=== PATIENT | male | born 1945 | race Caucasian/White ===

== ENCOUNTER 2017-01-27 07:33 | Inpatient (IN) | payer MEDICARE ==
[2017-01-27] VITALS (11 sets, daily range): BP systolic 143–198; BP diastolic 74–95; PULSE 57–108; RESP 16–18; TEMP 97–98.2; O2SAT 95–99
[2017-01-27] MEDS ORDERED: TRAV0.00 EACH EYE (07:49)
[2017-01-27] MEDS ORDERED: MORPHINE SULFATE 4 MG/ML INJ IV PUSH ONE (08:00)
[2017-01-27] MEDS ORDERED: ONDANSETRON HCL 4 MG/2 ML VIAL IVP ONE (08:00)
[2017-01-27] MEDS ORDERED: SODIUM CHLORID 0.9% 500 ML INJ 500 ML IV ONE (08:00)
[2017-01-27] MEDS ORDERED: PANTOPRAZOLE SODIUM 40 MG VIAL IVP ONE (08:00)
[2017-01-27] MEDS ORDERED: SODIUM CHLORIDE 0.9% FLUSH 10 ML FLUSH IV FLUSH PRN ×2 (08:00→11:00)
[2017-01-27 08:50] LABS: AUTOMATED NEUTROPHIL # 9.9 TH/MM3 (1.8-7.7); BASOPHIL % 0.2 % (0.0-2.0); EOSINOPHIL % 0.4 % (0.0-4.0); HEMATOCRIT 42.2 % (39.0-51.0); LYMPH % 9.6 % (9.0-44.0); LYMPHOCYTE # 1.1 TH/MM3 (1.0-4.8); MEAN CELL VOLUME 93.7 FL (80.0-100.0); MEAN CORPUSCULAR HEMOGLOBIN 31.5 PG (27.0-34.0); MEAN CORPUSCULAR HGB CONC 33.7 % (32.0-36.0); MONO % 6.2 % (0.0-8.0); NEUT % 83.6 % (16.0-70.0); RED BLOOD COUNT 4.51 MIL/MM3 (4.50-5.90); RED CELL DISTRIBUTION WIDTH 14.1 % (11.6-17.2); WHITE BLOOD COUNT 11.8 TH/MM3 (4.0-11.0)
[2017-01-27 08:58] LABS: PROTHROMBIN TIME - PATIENT 11.3 SEC (9.8-11.6)
--- NOTE | 2017-01-27 09:00 | PD ---
HPI Chief Complaint: GI Complaint Time Seen by Provider: 07:50 Travel History International Travel<30 days: No Contact w/Intl Traveler<30days: No Traveled to known affect area: No History of Present Illness HPI 71-year-old male came to the emergency room with history of abdominal pain, constipation and not passing gas for past 3 days. Patient points to his periumbilical area in a circular fashion saying the location of his pain. He says it's a dull ache and currently it is 2 out of 10. Patient says that he is a daily alcoholic but has not drank any alcohol in past 2 days because of the pain. He has been nauseous but no vomiting. He did not eat anything yesterday or today since he was afraid he'll make the pain worse. He has been drinking some fluid. Patient lives alone and came by himself. He is not extremely forthcoming with the history but upon asking does answer. Vital signs are otherwise stable. He does not appear to be in significant distress. He was tachycardic upon initial arrival but does not seem like he is having any withdrawal from alcohol. I noticed that his right I was red and upon asking he says he does not know how it happened but it started 2 days ago. Patient does have a primary care and the only medication he supposed to be is on Lipitor which she stopped 3 months ago since he did not feel like he needed it. [facility] Past Medical History Narrative Medical List of his past medical, surgical, social and family history as reviewed from the nursing note. Medical History: Denies Significant Hx Tetanus Vaccination: < 5 Years Influenza Vaccination: No Past Surgical History Appendectomy: Yes Social History Alcohol Use: Yes (" MUCH I CAN DAILY") Tobacco Use: No Substance Use: No Allergies-Medications (Allergen,Severity, Reaction): Coded Allergies: Amoxicillin (Verified Allergy, Mild, RASH, 01/27/17) Comments List of his allergies as reviewed from the nursing note. Reported Meds & Prescriptions Reported Meds & Active Scripts Active Reported Travatan Z Opth Drops (Travoprost) 0.004 % Soln 1 Drop EACH EYE HS Narrative Medication List of his home medications reviewed from the nursing note. Review of Systems Except as stated in HPI: all other systems reviewed are Neg Physical Exam Narrative GENERAL: Awake, alert, no obvious distress SKIN: Focused skin assessment warm/dry. HEAD: Atraumatic. Normocephalic. EYES: Pupils equal and round. No scleral icterus. No injection or drainage. Right eye has conjunctival hemorrhage but good extraocular eye motion and good vision grossly. ENT: No nasal bleeding or discharge. Mucous membranes pink and moist. NECK: Trachea midline. No JVD. CARDIOVASCULAR: Regular rate and rhythm. No murmur appreciated. RESPIRATORY: No accessory muscle use. Clear to auscultation. Breath sounds equal bilaterally. GASTROINTESTINAL: Abdomen soft, non-tender, nondistended. Hyperactive bowel sounds. Hepatic and splenic margins not palpable. MUSCULOSKELETAL: No obvious deformities. No clubbing. No cyanosis. No edema. NEUROLOGICAL: Awake and alert. No obvious cranial nerve deficits. Motor grossly within normal limits. Normal speech. PSYCHIATRIC: Appropriate mood and affect; insight and judgment normal. Data Data Last Documented VS Vital Signs Date Time Temp Pulse Resp B/P Pulse Ox O2 Delivery O2 Flow Rate FiO2 01/27/17 10:34 65 17 169/79 98 Room Air 01/27/17 07:35 97.8 Orders Complete Blood Count With Diff (01/27/17 07:57) Comprehensive Metabolic Panel (01/27/17 07:57) Lipase (01/27/17 07:57) Prothrombin Time / Inr (Pt) (01/27/17 07:57) Urinalysis - C+S If Indicated (01/27/17 07:57) Ct Abd/Pel W/O Iv Contrast (01/27/17 07:57) Iv Access Insert/Monitor (01/27/17 07:57) Ecg Monitoring (01/27/17 07:57) Oximetry (01/27/17 07:57) Morphine Inj (Morphine Inj) (01/27/17 08:00) Ondansetron Inj (Zofran Inj) (01/27/17 08:00) Pantoprazole Inj (Protonix Inj) (01/27/17 08:00) Sodium Chloride 0.9% Flush (Ns Flush) (01/27/17 08:00) Sodium Chlorid 0.9% 500 Ml Inj (Ns 500 M (01/27/17 08:00) Admit Order (Ed Use Only) (01/27/17 10:35) Labs Laboratory Tests Test 8/2/17 8/2/17 08:30 09:45 White Blood Count 11.8 TH/MM3 Red Blood Count 4.51 MIL/MM3 Hemoglobin 14.2 GM/DL Hematocrit 42.2 % Mean Corpuscular Volume 93.7 FL Mean Corpuscular Hemoglobin 31.5 PG Mean Corpuscular Hemoglobin 33.7 % Concent Red Cell Distribution Width 14.1 % Platelet Count 6 TH/MM3 Mean Platelet Volume 10.3 FL Neutrophils (%) (Auto) 83.6 % Lymphocytes (%) (Auto) 9.6 % Monocytes (%) (Auto) 6.2 % Eosinophils (%) (Auto) 0.4 % Basophils (%) (Auto) 0.2 % Neutrophils # (Auto) 9.9 TH/MM3 Lymphocytes # (Auto) 1.1 TH/MM3 Monocytes # (Auto) 0.7 TH/MM3 Eosinophils # (Auto) 0.0 TH/MM3 Basophils # (Auto) 0.0 TH/MM3 CBC Comment AUTO DIFF Differential Comment AUTO DIFF CONFIRMED Platelet Estimate RARE Platelet Morphology Comment NORMAL Red Cell Morphology Comment NORMAL Prothrombin Time 11.3 SEC Prothromb Time International 1.0 RATIO Ratio Sodium Level 135 MEQ/L Potassium Level 3.8 MEQ/L Chloride Level 102 MEQ/L Carbon Dioxide Level 22.9 MEQ/L Anion Gap 10 MEQ/L Blood Urea Nitrogen 12 MG/DL Creatinine 1.02 MG/DL Estimat Glomerular Filtration 72 ML/MIN Rate Random Glucose 108 MG/DL Calcium Level 9.0 MG/DL Total Bilirubin 1.0 MG/DL Aspartate Amino Transf 13 U/L (AST/SGOT) Alanine Aminotransferase 17 U/L (ALT/SGPT) Alkaline Phosphatase 87 U/L Total Protein 7.4 GM/DL Albumin 3.5 GM/DL Lipase 254 U/L Urine Color YELLOW Urine Turbidity CLEAR Urine pH 6.5 Urine Specific [place] 1.010 Urine Protein NEG mg/dL Urine Glucose (UA) NEG mg/dL Urine Ketones 10 mg/dL Urine Occult Blood TRACE Urine Nitrite NEG Urine Bilirubin NEG Urine Urobilinogen LESS THAN 2.0 MG/DL Urine Leukocyte Esterase NEG Urine RBC 3 /hpf Urine WBC 1 /hpf Urine Squamous Epithelial <1 /hpf Cells Urine Hyaline Casts 5 /lpf Urine Mucus FEW /lpf Microscopic Urinalysis Comment CULT NOT INDICATED MDM Medical Decision Making Medical Screen Exam Complete: Yes Emergency Medical Condition: Yes Medical Record Reviewed: Yes Differential Diagnosis Small bowel obstruction, abdominal pain NOS, acute pancreatitis Narrative Course 8:59 AM awaiting for the blood test results and the CAT scan to be done and resulted. Meanwhile patient is getting IV fluid bolus, medicated for pain and IV Protonix. 10:09 AM blood test results are back and patient's platelet results are critically low. Rest of the blood test results are within normal limits. CT abdomen and pelvis report was released by the radiologist and appears to be within normal limit. I would like to admit this patient and awaiting for the admitting team. Procedures EKG Prior to Arrival: No Diagnosis Primary Impression: Thrombocytopenia Additional Impression: Subconjunctival hemorrhage of right eye Admitting Information Admitting Physician Requests: Admit Scripts Prednisone 10 Mg Tab30 Mg PO BID #14 TAB Prov:Chhaya Santoro MD R1 01/29/17 Pantoprazole 40 Mg Tab40 Mg PO DAILY #30 TAB Prov:Chhaya Santoro MD R1 01/29/17 Claudia Noble MD Jan 27, 2017 09:00
[2017-01-27 09:07] LABS: ANION GAP 10 MEQ/L (5-15); AST (GOT) 13 U/L (15-37); BICARBONATE 22.9 MEQ/L (21.0-32.0); BLOOD UREA NITROGEN 12 MG/DL (7-18); CHLORIDE 102 MEQ/L (98-107); GLOMERULAR FILTRATION RATE 72 ML/MIN (>89); POTASSIUM 3.8 MEQ/L (3.5-5.1); SODIUM (NA) 135 MEQ/L (136-145)
[2017-01-27 09:08] LABS: ALT (GPT) 17 U/L (12-78); HEMO FLAGS AUTO DIFF
[2017-01-27 09:10] LABS: ALKALINE PHOSPHATASE 87 U/L (45-117)
[2017-01-27 09:12] LABS: PLATELET COUNT 6 TH/MM3 (150-450)
--- NOTE | 2017-01-27 10:04 | RADRPT ---
EXAM DATE/TIME: 01/27/2017 09:45 [facility] COMPARISON: No previous studies available for comparison. INDICATIONS : Epigastric pain, constipation, nausea and vomiting. ORAL CONTRAST: No oral contrast ingested. RADIATION DOSE: 9.96 CTDIvol (mGy) MEDICAL HISTORY : None SURGICAL HISTORY : Appendectomy. ENCOUNTER: Initial ACUITY: 3 days PAIN SCALE: 2/10 LOCATION: Bilateral upper quadrant TECHNIQUE: Volumetric scanning of the abdomen and pelvis was performed. Using automated exposure control and ad justment of the mA and/or kV according to patient size, radiation dose was kept as low as reasonably achievable to obtain optimal diagnostic quality images. DICOM format image data is available electro nically for review and comparison. FINDINGS: LOWER LUNGS: The visualized lower lungs are clear. LIVER: Homogeneous density without lesion. There is no dilation of the biliary tree. No calcified gallston es. SPLEEN: Normal size without lesion. PANCREAS: Within normal limits. KIDNEYS: Normal in size and shape. There is no mass, stone, or hydronephrosis. ADRENAL GLANDS: Within normal limits. VASCULAR: There is no aortic aneurysm. There is severe atherosclerotic disease. BOWEL/MESENTERY: The stomach, small bowel, and colon demonstrate no acute abnormality. There is no free intraperitone al air or fluid. Moderate size hiatal hernia is present. ABDOMINAL WALL: No acute abnormality. RETROPERITONEUM: There is no lymphadenopathy. BLADDER: No wall thickening or mass. REPRODUCTIVE: Within normal limits. INGUINAL: There is no lymphadenopathy or hernia. MUSCULOSKELETAL: There are degenerative changes of the lumbar spine. CONCLUSION: 1. No acute finding is identified to explain the clinical symptoms. 2. Nonacute findings include moderate size hiatal hernia and severe atherosclerotic disease. Reynaldo Lincoln MD on January 27, 2017 at 9:58 Board Certified Radiologist. This report was verified electronically.
[2017-01-27 10:16] LABS: BLOOD, URINE TRACE (NEG); COMMENT (UR) CULT NOT INDICATED; CULTURE IF INDICATED CULT NOT INDICATED; GLUCOSE,URINE NEG (NEG); HYALINE CAST, URINE 5 /lpf (RARE); KETONE, URINE 10 mg/dL (NEG); MUCUS URINE FEW /lpf (OCC); NITRITE,URINE NEG (NEG); PH, URINE 6.5 (5.0-8.5); SQUAMOUS EPITHELIAL CELL URINE <1 /hpf (0-5); URINE COLOR YELLOW (YELLW/STRAW)
[2017-01-27 10:42] LABS: PLATELET ESTIMATE SMEAR RARE (NORMAL)
--- NOTE | 2017-01-27 10:42 | HHI.HP ---
HPI Service Family Medicine Primary Care Physician Candido Almanzar MD Admission Diagnosis thrombocytopenia, chronic alcoholism Diagnoses: International Travel<30 Days: No Contact w/Intl Traveler<30days: No Known Affected Area: No History of Present Illness 71 yr old M w/ heavy alcohol history and 45-pack year smoking history, presented with abdominal pain. Accompanied by daughter. Abdominal pain started 2 days ago. Describes pain as constant, dull, located in the mid epigastric area and non radiating. Had 2-3 episodes of non bloody vomiting yesterday. Complains of constipation for the past couple of days as well as not passing gas. Daughter is a nurse and she became concern for bowel obstruction. In addition, pt reports R eye conjunctival hemorrhage, noticed it 3 days ago. Hx of easily bruising for the last 4 months. No family hx of bleeding disorders. No hx of liver disease, recent travel, recent infections. Only medication he takes is Travaprost for glaucoma. CBC in ED resulted in significant thrombocytopenia Plt count <6000. Reports hx of lower leg edema, left leg greater than the right. Family friend that is an internal medicine doctor prescribed patient lasix, but pt reports not taking it. Denies calf pain and no pitting edema in legs present at this time. Pt drinks 3-4 cups of whiskey per day. Last drink was 2 days ago. Quit smoking 2 years ago. Denies illicit drug use. Denies weight loss, fevers, night sweats, chills, CP, and SOB. (Chhaya Santoro MD R1) Review of Systems Other Per HPI (Chhaya Santoro MD R1) Past Family Social History Past Medical History Hyperlipidemia Past Surgical History R eye surgery for cataracts Basal cell carcinoma Dental implants (Chhaya Santoro MD R1) Allergies: Coded Allergies: Amoxicillin (Verified Allergy, Mild, RASH, 01/27/17) Family History Mom at 92 from stroke Dad at 86 from pancreatic cancer Social History Lives alone in [place]. Former smoker. 45 pack year smoking history, quit 2 years ago. Drinks 3-4 cups of whiskey per day. Denies illicit drug use. (Chhaya Santoro MD R1) Physical Exam Vital Signs Vital Signs Date Time Temp Pulse Resp B/P Pulse Ox O2 Delivery O2 Flow Rate FiO2 01/27/17 10:34 65 17 169/79 98 Room Air 01/27/17 08:00 99 Room Air 01/27/17 07:50 65 17 198/95 99 Room Air 01/27/17 07:35 97.8 108 16 143/84 97 Physical Exam GENERAL: This is a well-nourished, well-developed patient, in no apparent distress. SKIN: ecchymoses on bilateral arms, small bruises on abdomen EYES: Pupils equal round and reactive. Extraocular motions intact. No scleral icterus. No injection or drainage. CARDIOVASCULAR: Regular rate and rhythm without murmurs, gallops, or rubs. RESPIRATORY: Clear to auscultation. Breath sounds equal bilaterally. No wheezes , rales, or rhonchi. GASTROINTESTINAL: Abdomen soft, non-tender, nondistended. No hepato-splenomegaly , or palpable masses. No guarding. MUSCULOSKELETAL: Extremities without clubbing, cyanosis, or edema. Laboratory Laboratory Tests Test 01/27/17 01/27/17 08:30 09:45 White Blood Count 11.8 Red Blood Count 4.51 Hemoglobin 14.2 Hematocrit 42.2 Mean Corpuscular Volume 93.7 Mean Corpuscular Hemoglobin 31.5 Mean Corpuscular Hemoglobin 33.7 Concent Red Cell Distribution Width 14.1 Platelet Count 6 Mean Platelet Volume 10.3 Neutrophils (%) (Auto) 83.6 Lymphocytes (%) (Auto) 9.6 Monocytes (%) (Auto) 6.2 Eosinophils (%) (Auto) 0.4 Basophils (%) (Auto) 0.2 Neutrophils # (Auto) 9.9 Lymphocytes # (Auto) 1.1 Monocytes # (Auto) 0.7 Eosinophils # (Auto) 0.0 Basophils # (Auto) 0.0 CBC Comment AUTO DIFF Prothrombin Time 11.3 Prothromb Time International 1.0 Ratio Sodium Level 135 Potassium Level 3.8 Chloride Level 102 Carbon Dioxide Level 22.9 Anion Gap 10 Blood Urea Nitrogen 12 Creatinine 1.02 Estimat Glomerular Filtration 72 Rate Random Glucose 108 Calcium Level 9.0 Total Bilirubin 1.0 Aspartate Amino Transf 13 (AST/SGOT) Alanine Aminotransferase 17 (ALT/SGPT) Alkaline Phosphatase 87 Total Protein 7.4 Albumin 3.5 Lipase 254 Urine Color YELLOW Urine Turbidity CLEAR Urine pH 6.5 Urine Specific [place] 1.010 Urine Protein NEG Urine Glucose (UA) NEG Urine Ketones 10 Urine Occult Blood TRACE Urine Nitrite NEG Urine Bilirubin NEG Urine Urobilinogen LESS THAN 2.0 Urine Leukocyte Esterase NEG Urine RBC 3 Urine WBC 1 Urine Squamous Epithelial <1 Cells Urine Hyaline Casts 5 Urine Mucus FEW Microscopic Urinalysis Comment CULT NOT INDICATED (Chhaya Santoro MD R1) Result Diagram: 01/27/1782901/27/1730 Assessment and Plan Assessment and Plan 71 yr old M with significant alcohol history admitted for thrombocytopenia Code Status Full code Discussed Condition With Discussed patient with Dr. Bell. Pt seen and examined with Dr. Von Morfin ( Chhaya Santoro MD R1) Attending Attestation THIS CASE WAS DISCUSSED WITH THE RESIDENT PHYSICIAN. I HAVE REVIEWED THE RECORD AND AGREE WITH THE ABOVE NOTE AND PLAN OF CARE WAS DISCUSSED. I HAVE AUTHORIZED THE ORDER FOR PLACEMENT IN OUT-PATIENT OBSERVATION STATUS. (Ady Bell MD) Problem List: (1) Thrombocytopenia Status: Acute Plan: Plt count <6000 on CBC. Pt reports a hx of bruising easily for the past 4 months. No active bleeding. Spoke with Dr. 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 -Solumedrol 80 q12 -IVIG- Privigen 1,000 mg/kg for 2 consecutive days Hem Onc consulted Liver enzymes within normal limits INR < 1.0 UA negative Peripheral smear ordered HIV pending Hep panel pending haptoglobin pending LDH pending Doppler US b/l ordered (2) Abdominal pain Status: Acute Plan: Pt complains of dull, diffuse epigastric pain. Reports that he has been constipated for the past couple of days. Last BM was a couple of days ago. Not passing gas. WBC 11.8 NPO- bowel rest Fluids 100mls/ hr NS CT abdomen- no acute process Liver enzymes within normal limits (3) Constipation Status: Acute Plan: Pt reports being constipated for the last couple of days. Will start bowel regimen with colace (4) Chronic alcoholism Status: Acute Plan: [facility] protocol Folic Acid Multivitamin (5) Nutrition, metabolism, and development symptoms Status: Acute Plan: Fluids: NS 100mls/hr Diet: NPO Nursing orders: vitals q4h, I & Os (Chhaya Santoro MD R1) Physician Certification 2 Midnight Certification Type: Admission for Inpatient Services Order for Inpatient Services The services are ordered in accordance with Medicare regulations or non- Medicare payer requirements, as applicable. In the case of services not specified as inpatient-only, they are appropriately provided as inpatient services in accordance with the 2-midnight benchmark. Estimated LOS (days): 2 2 days is the estimated time the patient will need to remain in the hospital, assuming treatment plan goals are met and no additional complications. Post-Hospital Plan: Home (Chhaya Santoro MD R1) Chhaya Santoro MD R1 Jan 27, 2017 10:42 Ady Bell MD Jan 27, 2017 16:52
[2017-01-27 10:43] LABS: PLATELET MORPHOLOGY NORMAL (NORMAL); SCAN/DIFF AUTO DIFF CONFIRMED
[2017-01-27] MEDS: SODIUM CHLORIDE 0.9% FLUSH 10 ML FLUSH IV FLUSH SCH ×2 (11:07→21:19)
[2017-01-27] MEDS ORDERED: FLUMAZENIL 0.5 MG/5 ML VIAL IV PUSH PRN (12:15)
[2017-01-27] MEDS ORDERED: BISACODYL 10 MG SUPP RECTAL PRN (12:15)
[2017-01-27] MEDS ORDERED: LORazepam 1 MG TAB PO PRN (12:15)
[2017-01-27] MEDS ORDERED: LACTULOSE SYRUP 20 GM/30 ML CUP PO PRN (12:15)
[2017-01-27] MEDS ORDERED: MAGNESIUM HYDROXIDE SUSP 30 ML CUP PO PRN (12:15)
[2017-01-27] MEDS ORDERED: SENNOSIDES 8.6 MG TAB PO PRN (12:15)
[2017-01-27] MEDS ORDERED: LORazepam 2 MG/ML VIAL IV PUSH PRN ×4 (12:15)
[2017-01-27] MEDS ORDERED: LORazepam 2 MG TAB PO PRN (12:15)
--- NOTE | 2017-01-27 12:47 | RADRPT ---
EXAM DATE/TIME: 01/27/2017 12:20 [facility] COMPARISON: No previous studies available for comparison. INDICATIONS : Cough. MEDICAL HISTORY : None. SURGICAL HISTORY : Appendectomy. ENCOUNTER: Initial ACUITY: 1 week PAIN SCORE: 0/10 LOCATION: Bilateral chest FINDINGS: Minimal parenchymal changes are seen in the right lung anteriorly overlying the heart seen only on th e lateral. The heart and pulmonary vascularity are normal. The portion of the bony skeleton visualiz ed is unremarkable. Osseous structures are intact. CONCLUSION: Abnormal chest as described above. Darrin Munoz MD FACR on January 27, 2017 at 12:44 Board Certified Radiologist. This report was verified electronically.
--- NOTE | 2017-01-27 13:30 | RADRPT ---
EXAM DATE/TIME: 01/27/2017 12:39 [facility] COMPARISON: No previous studies available for comparison. INDICATIONS : Bilateral leg swelling. MEDICAL HISTORY : Hyperlipidemia. Basal cell carcinoma. SURGICAL HISTORY : Appendectomy. Right cataract. Basal cell carcinoma removed. ENCOUNTER: Initial ACUITY: 1 day PAIN SCORE: 2/10 LOCATION: Bilateral leg. TECHNIQUE: Venous ultrasound of the left and right leg was performed from the inguinal ligament to the proximal calf. Real-time, color Doppler and spectral tracing, compression and augmentation techniques were us ed. FINDINGS: RIGHT LEG: There is normal compressibility of the deep venous system from the inguinal region to the proximal ca lf. No echogenic clot is seen in the lumen of the common femoral, femoral, popliteal, and posterior tibial veins. There is a normal response of the venous system to proximal and distal augmentation an d respiration. LEFT LEG: There is normal compressibility of the deep venous system from the inguinal region to the proximal ca lf. No echogenic clot is seen in the lumen of the common femoral, femoral, popliteal, and posterior tibial veins. There is a normal response of the venous system to proximal and distal augmentation an d respiration. CONCLUSION: Negative for deep venous thrombosis. Darrin Munoz MD FACR on January 27, 2017 at 13:24 Board Certified Radiologist. This report was verified electronically.
[2017-01-27] MEDS: THIAMINE HCL 100 MG TAB PO SCH (14:24)
[2017-01-27] MEDS: MULTIVITAMIN TAB PO SCH (14:24)
[2017-01-27] MEDS: FOLIC ACID 1 MG TAB PO SCH (14:25)
[2017-01-27] MEDS: DOCUSATE SODIUM 50 MG/SENNA 8.6 MG TAB PO SCH ×2 (14:25→21:17)
[2017-01-27] MEDS: SODIUM CHLOR 0.9% 1000 ML INJ 1,000 ML IV SCH ×2 (14:28→23:15)
[2017-01-27] MEDS ORDERED: ACETAMINOPHEN 325 MG TAB PO PRN (15:00)
--- NOTE | 2017-01-27 16:51 | HHI.HP ---
[facility] Service Family Medicine Primary Care Physician Candido Almanzar MD Admission Diagnosis thrombocytopenia, chronic alcoholism Diagnoses: (1) Thrombocytopenia (2) Abdominal pain (3) Constipation (4) Chronic alcoholism (5) Nutrition, metabolism, and development symptoms International Travel<30 Days: No Contact w/Intl Traveler<30days: No Known Affected Area: No History of Present Illness 71-year-old male presenting to the emergency department with vague abdominal pain and found to have platelets of 6. He is complaining of abdominal pain that he says started 2 days ago. Describes this as a constant ache that is dull in nature and is in the epigastric region. This is associated with 2-3 episodes of nonbloody emesis yesterday. He also endorses constipation associated with this. He denies fevers or chills, denies chest pain or palpitations, denies shortness of breath. CT scan in the emergency department shows a hiatal hernia, otherwise no findings as to what could be causing this pain. During his workup in the emergency department, a CBC was read and he was found to have platelets of 6. Further evaluation shows that he has had easy bruising over the last 3-4 months. He denies any recent bleeding, denies bleeding from the gums, denies melena/hematochezia, denies nosebleeds. He did notice right is subconjunctival hemorrhage 3 days ago that occurred spontaneously. The only medication that he takes is travoprost drops for glaucoma. He does endorse a heavy alcohol history with 3-4 large whiskey drinks per night. He does endorse bilateral lower extremity edema, right greater than left over the last 2 months as well. Review of Systems Constitutional: COMPLAINS OF: Fatigue, DENIES: Fever, Weight gain, Chills, Dizziness Eyes: DENIES: Blurred vision, Double Vision Respiratory: DENIES: Cough, Wheezing, Hemoptysis, Sputum production, Shortness of breath Cardiovascular: COMPLAINS OF: Lower Extremity Edema, DENIES: Chest pain, Palpitations, Syncope, Dyspnea on Exertion Gastrointestinal: COMPLAINS OF: Abdominal pain, Constipation, Nausea, Vomiting , DENIES: Black stools, Bloody stools, Diarrhea, Difficulty Swallowing Musculoskeletal: DENIES: Joint pain Hematologic/lymphatic: COMPLAINS OF: Bruising, DENIES: Lymphadenopathy Past Family Social History Past Medical History Hyperlipidemia Past Surgical History R eye surgery for cataracts Basal cell carcinoma Dental implants Allergies: Coded Allergies: Amoxicillin (Verified Allergy, Mild, RASH, 01/27/17) Family History Mom at 92 from stroke Dad at 86 from pancreatic cancer Social History Lives alone in [place]. Former smoker. 45 pack year smoking history, quit 2 years ago. Drinks 3-4 cups of whiskey per day. Denies illicit drug use. Physical Exam Vital Signs Vital Signs Date Time Temp Pulse Resp B/P Pulse Ox O2 Delivery O2 Flow Rate FiO2 01/27/17 15:27 97.9 64 18 173/87 97 01/27/17 13:14 98.2 57 18 171/80 95 01/27/17 12:35 62 18 160/89 98 Room Air 01/27/17 10:34 65 17 169/79 98 Room Air 01/27/17 08:00 99 Room Air 01/27/17 07:50 65 17 198/95 99 Room Air 01/27/17 07:35 97.8 108 16 143/84 97 Physical Exam GENERAL: This is a well-nourished, well-developed patient, in no apparent distress. SKIN: ecchymoses on bilateral arms, small bruises on abdomen. Bilateral lower extremity venous stasis changes with darkening of his lower extremities. EYES: Right eye with large subconjunctival hemorrhage. Pupils are equal round and reactive to light CARDIOVASCULAR: Regular rate and rhythm without murmurs, gallops, or rubs. RESPIRATORY: Clear to auscultation. Breath sounds equal bilaterally. No wheezes , rales, or rhonchi. GASTROINTESTINAL: Abdomen soft, non-tender, nondistended. No hepato-splenomegaly , or palpable masses. No guarding. MUSCULOSKELETAL: Bilateral lower extremities with trace edema. Bilateral lower extremities with darkening/discoloration consistent with peripheral vascular disease Laboratory Laboratory Tests Test 01/27/17 01/27/17 01/27/17 01/27/17 08:30 09:45 11:24 13:04 White Blood Count 11.8 Red Blood Count 4.51 Hemoglobin 14.2 Hematocrit 42.2 Mean Corpuscular Volume 93.7 Mean Corpuscular Hemoglobin 31.5 Mean Corpuscular Hemoglobin 33.7 Concent Red Cell Distribution Width 14.1 Platelet Count 6 Mean Platelet Volume 10.3 Neutrophils (%) (Auto) 83.6 Lymphocytes (%) (Auto) 9.6 Monocytes (%) (Auto) 6.2 Eosinophils (%) (Auto) 0.4 Basophils (%) (Auto) 0.2 Neutrophils # (Auto) 9.9 Lymphocytes # (Auto) 1.1 Monocytes # (Auto) 0.7 Eosinophils # (Auto) 0.0 Basophils # (Auto) 0.0 CBC Comment AUTO DIFF Differential Comment AUTO DIFF CONFIRMED Platelet Estimate RARE Platelet Morphology Comment NORMAL Red Cell Morphology Comment NORMAL Prothrombin Time 11.3 Prothromb Time International 1.0 Ratio Sodium Level 135 Potassium Level 3.8 Chloride Level 102 Carbon Dioxide Level 22.9 Anion Gap 10 Blood Urea Nitrogen 12 Creatinine 1.02 Estimat Glomerular Filtration 72 Rate Random Glucose 108 Calcium Level 9.0 Total Bilirubin 1.0 Aspartate Amino Transf 13 (AST/SGOT) Alanine Aminotransferase 17 (ALT/SGPT) Alkaline Phosphatase 87 Total Protein 7.4 Albumin 3.5 Lipase 254 Urine Color YELLOW Urine Turbidity CLEAR Urine pH 6.5 Urine Specific [place] 1.010 Urine Protein NEG Urine Glucose (UA) NEG Urine Ketones 10 Urine Occult Blood TRACE Urine Nitrite NEG Urine Bilirubin NEG Urine Urobilinogen LESS THAN 2.0 Urine Leukocyte Esterase NEG Urine RBC 3 Urine WBC 1 Urine Squamous Epithelial <1 Cells Urine Hyaline Casts 5 Urine Mucus FEW Microscopic Urinalysis Comment CULT NOT INDICATED Blood Smear Pathologist Review Haptoglobin 198 Lactate Dehydrogenase 173 Vitamin B12 Level 720 Folate 11.7 Result Diagram: 01/27/17 0830 01/27/17 0830 Imaging Last 72 hours Impressions Abdomen/Pelvis CT 01/27/17 0757 Signed Impressions: Service Date/Time: Friday, January 27, 2017 09:45 - CONCLUSION: 1. No acute finding is identified to explain the clinical symptoms. 2. Nonacute findings include moderate size hiatal hernia and severe atherosclerotic disease. Reynaldo Lincoln MD Lower Extremity Ultrasound 01/27/17 0000 Signed Impressions: Service Date/Time: Friday, January 27, 2017 12:39 - CONCLUSION: Negative for deep venous thrombosis. Darrin Munoz MD FACR Chest X-Ray 01/27/17 0000 Signed Impressions: Service Date/Time: Friday, January 27, 2017 12:20 - CONCLUSION: Abnormal chest as described above. Darrin Munoz MD FACR Assessment and Plan Assessment and Plan 71 yr old M with significant alcohol history admitted for thrombocytopenia Problem List: (1) Thrombocytopenia Status: Acute Plan: Plt count <6000 on CBC. Pt reports a hx of bruising easily for the past 4 months. No active bleeding. Spoke with Dr. 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 -Solumedrol 80 q12 -IVIG- Privigen 1,000 mg/kg for 2 consecutive days Hem Onc consulted Liver enzymes within normal limits INR < 1.0 UA negative Peripheral smear ordered HIV pending Hep panel pending haptoglobin pending LDH pending Doppler US b/l ordered (2) Abdominal pain Status: Acute Plan: Pt complains of dull, diffuse epigastric pain. Reports that he has been constipated for the past couple of days. Last BM was a couple of days ago. Not passing gas. WBC 11.8 NPO- bowel rest Fluids 100mls/ hr NS CT abdomen- no acute process Liver enzymes within normal limits (3) Constipation Status: Acute Plan: Pt reports being constipated for the last couple of days. Will start bowel regimen with colace (4) Chronic alcoholism Status: Acute Plan: [facility] protocol Folic Acid Multivitamin (5) Nutrition, metabolism, and development symptoms Status: Acute Plan: Fluids: NS 100mls/hr Diet: NPO Nursing orders: vitals q4h, I & Os Ady Bell MD Jan 27, 2017 16:51
[2017-01-27] MEDS: methylPREDNISolone SOD SUCC 40 MG/1 ML VIAL IV PUSH SCH ×2 (17:22→21:19)
[2017-01-27] MEDS ORDERED: IMMUNE GLOBULIN INJ 80 GM in SYRINGE/BAG 1 EA IV ONE (18:00)
[2017-01-27] MEDS ORDERED: ACETAMINOPHEN 325 MG TAB PO ONE (19:17)
[2017-01-27] MEDS ORDERED: diphenhydrAMINE HCL 25 MG CAP PO ONE (19:17)
[2017-01-27] MEDS ORDERED: diphenhydrAMINE HCL 50 MG/ML VIAL IV PUSH PRN (19:30)
[2017-01-27] MEDS ORDERED: EPINEPHrine HCL (1:1000) 1 MG/ML VIAL IM PRN (19:30)
[2017-01-27] MEDS: DEXTROSE 5% IN WATE 500 ML INJ 500 ML IV SCH (20:00)
[2017-01-27] MEDS ORDERED: ENALAPRILAT 1.25 MG/ML VIAL IV PRN (20:45)
[2017-01-27] MEDS: LATANOPROST 0.005% OPHT SOLN 2.5 ML BTL EACH EYE SCH (21:36)
[2017-01-28] VITALS (10 sets, daily range): BP systolic 119–158; BP diastolic 56–81; PULSE 52–69; RESP 15–20; TEMP 96.2–97.9; O2SAT 93–97
--- NOTE | 2017-01-28 05:44 | MB ---
cc: TAD HO DATE OF CONSULTATION 01/27/2017 REASON FOR CONSULTATION 6000, platelet count. PATIENT PROFILE The patient is a 71-year-old white male. He is . He was once. He has five children. He was born in [place]. 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 He stopped smoking 2 years ago and had previously smoked a pack of cigarettes per day for 45 years for total of 45 pack-years. Alcohol consists of two to three drinks each day; each drink is approximately 1-1/2 ounces of whiskey. HISTORY OF PRESENT ILLNESS The patient is a 71-year male who noted increasing bruising over several weeks. During the past few days he had abdominal pain and constipation. It was the pain that drove him to go to the emergency room. There was no recent escalation of alcohol intake, in that the alcohol intake has been fairly consistent and unchanging. He has not had any alcohol in two to three days. There has been no recent infection. The only medicine he takes is Travatan eye drops. When he arrived at the emergency room he had a CBC and platelet count - hemoglobin 14, hematocrit 42, white count 11,000, platelet count 6000, neutrophils are 83%. Review of the peripheral smear revealed rare platelets. The report by the pathologist reads platelets are severely decreased in number. Those present demonstrate normal size and granularity. Schistocytes are not present to suggest a microangiopathic hemolytic process. Haptoglobin is 198. 'Lytes, BUN, creatinine and liver function tests are unremarkable except for a slightly low sodium at 135. LDH is 173. B12 720 and folic acid as 11.7. PAST SURGICAL HISTORY 1. Removal of skin cancers which were not melanoma. 2. Dental implants. 3. Cataract surgery. 4. Appendectomy. PAST MEDICAL HISTORY No medical problems. MEDICATIONS PRIOR TO ADMISSION Travatan eye drops. ALLERGIES AMOXICILLIN caused a rash. FAMILY HISTORY Noncontributory. REVIEW OF SYSTEMS HEENT: Vision decreased right eye which is longstanding. Several days ago he had a hemorrhage into the conjunctiva of the right eye. Hearing is fine. CARDIORESPIRATORY: No chest pain, palpitations, no shortness of breath or cough. GI: Abdominal discomfort, constipation. Last colonoscopy was 6 months ago and was normal by history. : No dysuria or frequency. MUSCULOSKELETAL: No bone pain. NEUROLOGIC: No weakness. SKIN: Increased bruising particular over the abdominal wall. PHYSICAL EXAMINATION GENERAL: Physical exam reveals a pleasant well-appearing male. VITAL SIGNS: Blood pressure is 170/80, respiratory rate 18, pulse 60, afebrile, respiratory rate 20. HEAD: Normocephalic. Sclerae - there is hemorrhage in the sclera of the right eye Oropharynx - a few small petechiae in the back of the throat. LYMPHATICS: There is no lymphadenopathy. HEART: Regular rhythm. LUNGS: Clear. ABDOMEN: Soft. No hepatosplenomegaly. EXTREMITIES: Trace edema with slight stasis changes involving the lower extremities around the ankle. NEUROLOGIC: No focal weakness. SKIN: There are ecchymoses over the abdominal wall and a few petechiae involving the lower extremities. ASSESSMENT The patient has a picture consistent with ITP. I do not believe there is a primary bone marrow disorder given the normal hemoglobin, white count and differential. There is no evidence of a microangiopathic thrombocytopenia. PT and INR are normal, he is well and there is no evidence to suggest DIC. He is not taking any medication which would cause thrombocytopenia. 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 PLAN 1. IV steroids. 2. Given the severity of the thrombocytopenia, I am going to treat him with IVIG 1 gram per kilogram daily for two days. He will have a CBC and platelet count daily. I am hoping within 3 or 5 days we will see the platelets rise above 30,000 and then he can be discharged with a tapering dose of prednisone. 3. I cannot explain the abdominal pain at the moment. He does have a normal lipase, the abdominal exam is benign and he had a colonoscopy approximately 6 months ago. MD BABAR Maki/SUN /9:26 PM /5:26 AM GAYLE
[2017-01-28 08:41] LABS: AUTOMATED NEUTROPHIL # 9.4 TH/MM3 (1.8-7.7); HEMATOCRIT 40.6 % (39.0-51.0); LYMPHOCYTE # 0.6 TH/MM3 (1.0-4.8); MEAN CELL VOLUME 94.6 FL (80.0-100.0); MEAN CORPUSCULAR HGB CONC 33.9 % (32.0-36.0); MONO % 1.5 % (0.0-8.0); NEUT % 92.5 % (16.0-70.0); RED CELL DISTRIBUTION WIDTH 13.9 % (11.6-17.2); WHITE BLOOD COUNT 10.2 TH/MM3 (4.0-11.0)
[2017-01-28 08:48] LABS: HEMO FLAGS AUTO DIFF
[2017-01-28 08:51] LABS: PLATELET COUNT 12 TH/MM3 (150-450)
[2017-01-28] MEDS: FOLIC ACID 1 MG TAB PO SCH (09:48)
[2017-01-28] MEDS: methylPREDNISolone SOD SUCC 40 MG/1 ML VIAL IV PUSH SCH ×2 (09:48→20:37)
[2017-01-28] MEDS: MULTIVITAMIN TAB PO SCH (09:48)
[2017-01-28] MEDS: THIAMINE HCL 100 MG TAB PO SCH (09:48)
[2017-01-28] MEDS: PANTOPRAZOLE SOD 40 MG DELAYED RELEASE TAB PO SCH (09:48)
[2017-01-28] MEDS: SODIUM CHLOR 0.9% 1000 ML INJ 1,000 ML IV SCH (09:50)
[2017-01-28] MEDS: DOCUSATE SODIUM 50 MG/SENNA 8.6 MG TAB PO SCH ×2 (09:55→20:37)
--- NOTE | 2017-01-28 10:29 | PD.ONC.PN ---
Subjective Subjective Remarks Afebrile overnight Patient denies any bleeding Denies headache Patient to receive dose 2 out of 3 IVIG today Objective Data Date Time Temp Pulse Resp B/P Pulse Ox O2 Delivery O2 Flow Rate FiO2 01/28/17 09:15 96.2 57 20 138/73 97 01/28/17 06:08 96.4 52 17 158/81 96 01/28/17 04:00 97.0 54 17 134/70 96 01/28/17 03:00 97.5 62 15 145/70 94 01/28/17 02:05 97.0 54 18 149/79 94 01/28/17 00:45 96.3 60 16 154/78 95 01/28/17 00:20 97.1 59 17 157/76 93 01/27/17 23:45 97.0 61 18 157/77 95 01/27/17 23:19 98.2 61 18 143/74 95 01/27/17 20:41 20 01/27/17 20:09 61 18 175/86 01/27/17 20:07 97.7 62 17 186/90 95 01/27/17 15:27 97.9 64 18 173/87 97 01/27/17 13:14 98.2 57 18 171/80 95 01/27/17 12:35 62 18 160/89 98 Room Air 01/27/17 10:34 65 17 169/79 98 Room Air Result Diagram: 01/28/17 0641 01/27/17 0830 Laboratory Results Laboratory Tests Test 01/27/17 01/27/17 01/27/17 01/28/17 11:24 13:04 18:34 06:41 Blood Smear Pathologist Review Haptoglobin 198 MG/DL Lactate Dehydrogenase 173 U/L Vitamin B12 Level 720 PG/ML Folate 11.7 NG/ML Hepatitis A IgM Antibody NEGATIVE Hepatitis B Surface Antigen NEGATIVE Hepatitis B Core IgM Antibody NEGATIVE Hepatitis C Antibody NEGATIVE HIV (1&2) Antibody NEGATIVE D-Dimer Quantitative (PE/DVT) 0.76 MG/L FEU White Blood Count 10.2 TH/MM3 Red Blood Count 4.30 MIL/MM3 Hemoglobin 13.8 GM/DL Hematocrit 40.6 % Mean Corpuscular Volume 94.6 FL Mean Corpuscular Hemoglobin 32.0 PG Mean Corpuscular Hemoglobin 33.9 % Concent Red Cell Distribution Width 13.9 % Platelet Count 12 TH/MM3 Mean Platelet Volume 10.2 FL Neutrophils (%) (Auto) 92.5 % Lymphocytes (%) (Auto) 6.0 % Monocytes (%) (Auto) 1.5 % Eosinophils (%) (Auto) 0.0 % Basophils (%) (Auto) 0.0 % Neutrophils # (Auto) 9.4 TH/MM3 Lymphocytes # (Auto) 0.6 TH/MM3 Monocytes # (Auto) 0.2 TH/MM3 Eosinophils # (Auto) 0.0 TH/MM3 Basophils # (Auto) 0.0 TH/MM3 CBC Comment AUTO DIFF Administered Medications Medications (Trade) Dose Ordered Sig/Shania Route PRN Reason Start Time Stop Time Status Last Admin Dose Admin Sodium Chloride (NS Flush) 2 ml BID IV FLUSH 01/27/17 11:00 01/27/17 21:19 Folic Acid (Folate) 1 mg DAILY PO 01/27/17 13:00 01/28/17 09:48 Multivitamins (Theragran) 1 tab DAILY PO 01/27/17 13:00 01/28/17 09:48 Thiamine HCl (Vitamin B1) 100 mg DAILY PO 01/27/17 13:00 01/28/17 09:48 Senna/Docusate Sodium (Cami-Colace) 1 tab BID PO 01/27/17 13:00 01/28/17 09:55 Latanoprost 1 drop 1 drop HS EACH EYE 01/27/17 21:00 01/27/17 21:36 Sodium Chloride (NS 1000 ml Inj) 1,000 ml @ 100 mls/hr Q10H IV 01/27/17 13:15 01/28/17 09:50 Acetaminophen (Tylenol) 650 mg Q4H PRN PO PAIN 01/27/17 15:00 01/27/17 17:19 Methylprednisolone Sodium Succinate 80 mg 80 mg Q12HR IV PUSH 01/27/17 16:14 01/28/17 09:48 Dextrose (D5W 500 ml Inj) 500 ml @ 30 mls/hr [id number] IV 01/27/17 20:00 01/27/17 20:00 Pantoprazole Sodium (Protonix) 40 mg DAILY PO 01/28/17 09:00 01/28/17 09:48 Objective Remarks GENERAL: Older male resting in bed in no distress SKIN: Warm and dry. Healing ecchymoses to abdomen HEAD: Normocephalic. EYES: Conjunctival hemorrhage to right eye NECK: No JVD or lymphadenopathy. CARDIOVASCULAR: S1/S2. Normal rhythm. RESPIRATORY: Breath sounds equal bilaterally. No accessory muscle use. GASTROINTESTINAL: Abdomen soft, non-tender, nondistended. EXTREMITIES: Minimal petechiae to bilateral lower extremities MUSCULOSKELETAL: Adequate muscle tone. NEUROLOGICAL: No obvious focal deficit. Awake, alert, and oriented x3. Assessment/Plan Problem List: (1) Thrombocytopenia Status: Acute Assessment 71 -year-old male admitted with thrombocytopenia Plan 1. Patient to receive IVIG today 2. We will continue steroids until platelets greater than 30,000. 3. Once platelets greater than 30,000 he can be discharged on tapering dose steroids. 4. Follow up in clinic Attending Statement The exam, history, and the medical decision-making described in the above note were completed with the assistance of the mid-level provider. I reviewed and agree with the findings presented. I attest that I had a [id number] encounter with the patient on the same day, and personally performed and documented my assessment and findings in the medical record. platelets higher today. It usually takes about 3 days from starting IV IG to have a response and hopefully we will have this. Once the platelets are greater then 30,000 can send home on po prednisone. continue current tx. Rosalina Gardiner Jan 28, 2017 10:29 Yandel Salcido MD Jan 28, 2017 18:01
--- NOTE | 2017-01-28 10:38 | HHI.FPPN ---
Subjective Remarks No acute events overnight. Pt doing well this AM. Afebrile. Vitals are within normal limits. Reports that abdominal pain resolved. Denies CP, SOB, edema in legs, and N/V. (Chhaya Santoro MD R1) Objective Vitals Vital Signs Date Time Temp Pulse Resp B/P Pulse Ox O2 Delivery O2 Flow Rate FiO2 01/28/17 09:15 96.2 57 20 138/73 97 01/28/17 06:08 96.4 52 17 158/81 96 01/28/17 04:00 97.0 54 17 134/70 96 01/28/17 03:00 97.5 62 15 145/70 94 01/28/17 02:05 97.0 54 18 149/79 94 01/28/17 00:45 96.3 60 16 154/78 95 01/28/17 00:20 97.1 59 17 157/76 93 01/27/17 23:45 97.0 61 18 157/77 95 01/27/17 23:19 98.2 61 18 143/74 95 01/27/17 20:41 20 01/27/17 20:09 61 18 175/86 01/27/17 20:07 97.7 62 17 186/90 95 01/27/17 15:27 97.9 64 18 173/87 97 01/27/17 13:14 98.2 57 18 171/80 95 01/27/17 12:35 62 18 160/89 98 Room Air I/O 01/27/17 01/27/17 01/27/17 01/28/17 01/28/17 01/28/17 07:00 15:00 23:00 07:00 15:00 23:00 Output Total 1350 ml Balance -1350 ml Output Urine Total 1350 ml (Chhaya Santoro MD R1) Result Diagram: 01/28/17 0641 01/27/17 0830 Imaging Last Impressions Abdomen/Pelvis CT 01/27/17 0757 Signed Impressions: Service Date/Time: Friday, January 27, 2017 09:45 - CONCLUSION: 1. No acute finding is identified to explain the clinical symptoms. 2. Nonacute findings include moderate size hiatal hernia and severe atherosclerotic disease. Reynaldo Lincoln MD Lower Extremity Ultrasound 01/27/17 0000 Signed Impressions: Service Date/Time: Friday, January 27, 2017 12:39 - CONCLUSION: Negative for deep venous thrombosis. Darrin Munoz MD FACR Chest X-Ray 01/27/17 0000 Signed Impressions: Service Date/Time: Friday, January 27, 2017 12:20 - CONCLUSION: Abnormal chest as described above. Darrin Munoz MD FACR Objective Remarks ENERAL: This is a well-nourished, well-developed patient, in no apparent distress. SKIN: ecchymoses on bilateral arms, small bruises on abdomen. Bilateral lower extremity venous stasis changes with darkening of his lower extremities. EYES: Right eye with large subconjunctival hemorrhage. Pupils are equal round and reactive to light CARDIOVASCULAR: Regular rate and rhythm without murmurs, gallops, or rubs. RESPIRATORY: Clear to auscultation. Breath sounds equal bilaterally. No wheezes , rales, or rhonchi. GASTROINTESTINAL: Abdomen soft, non-tender, nondistended. No hepato-splenomegaly , or palpable masses. No guarding. MUSCULOSKELETAL: Bilateral lower extremities with trace edema. Bilateral lower extremities with darkening/discoloration consistent with peripheral vascular disease (Chhaya Santoro MD R1) A/P Assessment and Plan 71 yr old M with significant alcohol history admitted for thrombocytopenia Discharge Planning Discharge home pending, continue treatment with IVIG and monitoring plt count ( Chhaya Santoro MD R1) Attending Attestation Pt. examined and case discussed with resident physicians I have read the above note and agree with the assessment/plan as discussed with me I was involved in all medical decision making for this patient Ady Bell MD (Ady Bell MD) Problem List: (1) Thrombocytopenia Status: Acute Plan: Plt count <6000 upon admission. Pt reports a hx of bruising easily for the past 4 months. No active bleeding. Spoke with Dr. 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 -Solumedrol 80 q12 -IVIG- Privigen 1,000 mg/kg for 2 consecutive days, will receive 2 dose today -Plt count improving, 12,000 today -Once platelets greater than 30,000 he can be discharged on tapering dose steroids. Hem Onc consulted, appreciated recs Liver enzymes within normal limits INR < 1.0 UA negative Peripheral smear revealed decreased plt number, otherwise normal HIV negative Hep panel negative haptoglobin wnl LDH wnl Doppler US b/l negative for DVTs (2) Abdominal pain Status: Resolved Plan: Pt complains of dull, diffuse epigastric pain that has resolved. WBC improving, 10.[address] abdomen- no acute process Liver enzymes within normal limits (3) Constipation Status: Acute Plan: Pt reports being constipated for the last couple of days. bowel regimen with colace (4) Chronic alcoholism Status: Acute Plan: [facility] protocol Folic Acid Multivitamin (5) Nutrition, metabolism, and development symptoms Status: Acute Plan: Fluids: none Diet: regular diet Nursing orders: vitals q4h, I & Os (Chhaya Santoro MD R1) Chhaya Santoro MD R1 Jan 28, 2017 10:38 Ady Bell MD Jan 28, 2017 16:37
[2017-01-28 10:43] LABS: PLATELET ESTIMATE SMEAR RARE (NORMAL); PLATELET MORPHOLOGY NORMAL (NORMAL); SCAN/DIFF AUTO DIFF CONFIRMED
[2017-01-28 12:28] LABS: BICARBONATE 22.4 MEQ/L (21.0-32.0); POTASSIUM 3.7 MEQ/L (3.5-5.1)
[2017-01-28] MEDS: DEXTROSE 5% IN WATE 500 ML INJ 500 ML IV SCH (12:40)
[2017-01-28] MEDS ORDERED: IMMUNE GLOBULIN INJ 80 GM in SYRINGE/BAG 1 EA IV ONE (18:00)
[2017-01-28] MEDS: SODIUM CHLORIDE 0.9% FLUSH 10 ML FLUSH IV FLUSH SCH ×2 (18:33→20:44)
[2017-01-28] MEDS ORDERED: EPINEPHRINE HCL (1:1000) 1 MG/ML AMP Reaction Med OTHER PRN (20:15)
[2017-01-28] MEDS ORDERED: DIPHENHYDRAMINE HCL 25 MG CAP Pre-med PO ONE (20:15)
[2017-01-28] MEDS ORDERED: NS 500 ML Pre-hydration IV ONE (20:15)
[2017-01-28] MEDS ORDERED: DIPHENHYDRAMINE HCL 50 MG/ML VIAL Reaction Med IV PUSH PRN (20:15)
[2017-01-28] MEDS ORDERED: ACETAMINOPHEN 325 MG TAB Pre-med PO ONE (20:15)
[2017-01-28] MEDS: LATANOPROST 0.005% OPHT SOLN 2.5 ML BTL EACH EYE SCH (20:42)
[2017-01-29] VITALS (12 sets, daily range): BP systolic 107–143; BP diastolic 60–72; PULSE 54–68; RESP 16–18; TEMP 96.2–97; O2SAT 94–98
[2017-01-29] MEDS: SODIUM CHLORIDE 0.9% FLUSH 10 ML FLUSH IV FLUSH SCH (08:04)
[2017-01-29] MEDS: methylPREDNISolone SOD SUCC 40 MG/1 ML VIAL IV PUSH SCH (08:05)
[2017-01-29] MEDS: MULTIVITAMIN TAB PO SCH (08:06)
[2017-01-29] MEDS: FOLIC ACID 1 MG TAB PO SCH (08:06)
[2017-01-29] MEDS: THIAMINE HCL 100 MG TAB PO SCH (08:06)
[2017-01-29] MEDS: DOCUSATE SODIUM 50 MG/SENNA 8.6 MG TAB PO SCH (08:06)
[2017-01-29] MEDS: PANTOPRAZOLE SOD 40 MG DELAYED RELEASE TAB PO SCH (08:06)
[2017-01-29 09:12] LABS: AUTOMATED NEUTROPHIL # 13.7 TH/MM3 (1.8-7.7); BASOPHIL % 0.1 % (0.0-2.0); HEMATOCRIT 35.5 % (39.0-51.0); LYMPHOCYTE # 0.8 TH/MM3 (1.0-4.8); MEAN CELL VOLUME 94.7 FL (80.0-100.0); MEAN CORPUSCULAR HEMOGLOBIN 32.1 PG (27.0-34.0); MEAN CORPUSCULAR HGB CONC 33.9 % (32.0-36.0); MONO % 4.7 % (0.0-8.0); NEUT % 90.2 % (16.0-70.0); PLATELET COUNT 68 TH/MM3 (150-450); RED BLOOD COUNT 3.75 MIL/MM3 (4.50-5.90); RED CELL DISTRIBUTION WIDTH 14.1 % (11.6-17.2); WHITE BLOOD COUNT 15.2 TH/MM3 (4.0-11.0)
[2017-01-29 09:22] LABS: HEMO FLAGS AUTO DIFF
[2017-01-29 09:33] LABS: BICARBONATE 18.9 MEQ/L (21.0-32.0); POTASSIUM 4.1 MEQ/L (3.5-5.1)
[2017-01-29 10:06] LABS: PLATELET ESTIMATE SMEAR LOW (NORMAL); PLATELET MORPHOLOGY NORMAL (NORMAL); SCAN/DIFF AUTO DIFF CONFIRMED
--- NOTE | 2017-01-29 10:39 | PD.ONC.PN ---
Subjective Subjective Remarks Afebrile overnight. Patient resting in bed. Hoping to take a shower. Wanting to go home. No further bleeding. Objective Data Date Time Temp Pulse Resp B/P Pulse Ox O2 Delivery O2 Flow Rate FiO2 01/29/17 08:00 96.2 61 18 137/72 98 01/29/17 07:00 96.2 61 17 123/64 97 01/29/17 06:00 96.7 62 17 143/70 97 01/29/17 05:00 97.0 55 17 134/66 96 01/29/17 04:00 96.6 54 18 118/63 97 01/29/17 03:00 96.2 60 18 117/68 97 01/29/17 02:00 96.6 58 18 107/60 96 01/29/17 00:46 97.0 58 18 123/63 94 01/29/17 00:30 96.7 63 18 126/69 95 01/29/17 00:15 96.4 64 18 118/68 96 01/29/17 00:00 96.2 68 18 117/63 95 01/28/17 20:00 97.9 69 17 131/66 95 01/28/17 15:30 96.4 69 20 119/56 95 01/28/17 11:30 96.2 69 20 119/65 95 01/29/17 01/29/17 01/29/17 06:59 14:59 22:59 Output Total 500 ml 480 ml Balance -500 ml -480 ml Result Diagram: 01/29/1714 01/29/1714 Laboratory Results Laboratory Tests Test 01/28/17 01/29/17 11:00 08:14 Sodium Level 137 MEQ/L 137 MEQ/L Potassium Level 3.7 MEQ/L 4.1 MEQ/L Chloride Level 107 MEQ/L 111 MEQ/L Carbon Dioxide Level 22.4 MEQ/L 18.9 MEQ/L Anion Gap 8 MEQ/L 7 MEQ/L Blood Urea Nitrogen 17 MG/DL 21 MG/DL Creatinine 0.89 MG/DL 0.99 MG/DL Estimat Glomerular Filtration 84 ML/MIN 74 ML/MIN Rate Random Glucose 118 MG/DL 106 MG/DL Calcium Level 8.3 MG/DL 7.9 MG/DL White Blood Count 15.2 TH/MM3 Red Blood Count 3.75 MIL/MM3 Hemoglobin 12.0 GM/DL Hematocrit 35.5 % Mean Corpuscular Volume 94.7 FL Mean Corpuscular Hemoglobin 32.1 PG Mean Corpuscular Hemoglobin 33.9 % Concent Red Cell Distribution Width 14.1 % Platelet Count 68 TH/MM3 Mean Platelet Volume 9.6 FL Neutrophils (%) (Auto) 90.2 % Lymphocytes (%) (Auto) 5.0 % Monocytes (%) (Auto) 4.7 % Eosinophils (%) (Auto) 0.0 % Basophils (%) (Auto) 0.1 % Neutrophils # (Auto) 13.7 TH/MM3 Lymphocytes # (Auto) 0.8 TH/MM3 Monocytes # (Auto) 0.7 TH/MM3 Eosinophils # (Auto) 0.0 TH/MM3 Basophils # (Auto) 0.0 TH/MM3 CBC Comment AUTO DIFF Differential Comment AUTO DIFF CONFIRMED Platelet Estimate LOW Platelet Morphology Comment NORMAL Red Cell Morphology Comment NORMAL Administered Medications Medications (Trade) Dose Ordered Sig/Shania Route PRN Reason Start Time Stop Time Status Last Admin Dose Admin Sodium Chloride (NS Flush) 2 ml BID IV FLUSH 01/27/17 11:00 01/29/17 08:04 Folic Acid (Folate) 1 mg DAILY PO 01/27/17 13:00 01/29/17 08:06 Multivitamins (Theragran) 1 tab DAILY PO 01/27/17 13:00 01/29/17 08:06 Thiamine HCl (Vitamin B1) 100 mg DAILY PO 01/27/17 13:00 01/29/17 08:06 Senna/Docusate Sodium (Cami-Colace) 1 tab BID PO 01/27/17 13:00 01/29/17 08:06 Latanoprost (Xalatan 0.005% Opth Soln) 1 drop HS EACH EYE 01/27/17 21:00 01/28/17 20:42 Acetaminophen 650 mg 650 mg Q4H PRN PO PAIN 01/27/17 15:00 01/27/17 17:19 Dextrose (D5W 500 ml Inj) 500 ml @ 30 mls/hr [id number] IV 01/27/17 20:00 01/28/17 12:40 Pantoprazole Sodium (Protonix) 40 mg DAILY PO 01/28/17 09:00 01/29/17 08:06 Objective Remarks GENERAL: Elderly male upright in bed in nad. SKIN: Warm and dry. HEAD: Normocephalic. EYES: No injection or drainage. NECK: Supple, trachea midline. CARDIOVASCULAR: Regular rate and rhythm RESPIRATORY: Breath sounds equal bilaterally. No accessory muscle use. GASTROINTESTINAL: Abdomen soft, non-tender, nondistended. EXTREMITIES: No cyanosis NEUROLOGICAL: awake and alert, normal speech. Assessment/Plan Assessment 71 -year-old male admitted with thrombocytopenia Plan 1. platelets 68K. clear for discharge 2. would discharge on Prednisone 30mg PO BID + Protonix 3. fs faxed to new patient referrals. Must have follow up by 02.05.17. would continue on same dose of Prednisone until that time Attending Statement The exam, history, and the medical decision-making described in the above note were completed with the assistance of the mid-level provider. I reviewed and agree with the findings presented. I attest that I had a [id number] encounter with the patient on the same day, and personally performed and documented my assessment and findings in the medical record. doing well without further bleeding and platelets have risen rapidly. can go home on prednisone 60 mg a day and I will taper as outpatient. diagnosis remains ITP. Above reviewed with patient. Rossi Townsend Jan 29, 2017 10:38 Yandel Salcido MD Jan 29, 2017 13:08
--- NOTE | 2017-01-29 10:53 | HHI.FPPN ---
Subjective Remarks No acute events overnight. Patient doing well this AM. Denies active bleeding, CP, SOB, N/V, and abdominal pain. (Chhaya Santoro MD R1) Objective Vitals Vital Signs Date Time Temp Pulse Resp B/P Pulse Ox O2 Delivery O2 Flow Rate FiO2 01/29/17 09:00 96.7 59 16 140/70 96 01/29/17 08:00 96.2 61 18 137/72 98 01/29/17 07:00 96.2 61 17 123/64 97 01/29/17 06:00 96.7 62 17 143/70 97 01/29/17 05:00 97.0 55 17 134/66 96 01/29/17 04:00 96.6 54 18 118/63 97 01/29/17 03:00 96.2 60 18 117/68 97 01/29/17 02:00 96.6 58 18 107/60 96 01/29/17 00:46 97.0 58 18 123/63 94 01/29/17 00:30 96.7 63 18 126/69 95 01/29/17 00:15 96.4 64 18 118/68 96 01/29/17 00:00 96.2 68 18 117/63 95 01/28/17 20:00 97.9 69 17 131/66 95 01/28/17 15:30 96.4 69 20 119/56 95 01/28/17 11:30 96.2 69 20 119/65 95 I/O 01/28/17 01/28/17 01/28/17 01/29/17 01/29/17 01/29/17 07:00 15:00 23:00 07:00 15:00 23:00 Intake Total 360 ml 300 ml Output Total 1350 ml 400 ml 380 ml 500 ml 480 ml Balance -1350 ml -40 ml -80 ml -500 ml -480 ml Intake Oral 360 ml IV Total 300 ml Output Urine Total 1350 ml 400 ml 380 ml 500 ml 480 ml # Bowel Movements 0 (Chhaya Santoro MD R1) Result Diagram: 01/29/1714 01/29/17813 Imaging Last Impressions Abdomen/Pelvis CT 01/27/17 0757 Signed Impressions: Service Date/Time: Friday, January 27, 2017 09:45 - CONCLUSION: 1. No acute finding is identified to explain the clinical symptoms. 2. Nonacute findings include moderate size hiatal hernia and severe atherosclerotic disease. Reynaldo Lincoln MD Lower Extremity Ultrasound 01/27/17 0000 Signed Impressions: Service Date/Time: Friday, January 27, 2017 12:39 - CONCLUSION: Negative for deep venous thrombosis. Darrin Munoz MD FACR Chest X-Ray 01/27/17 Signed Impressions: Service Date/Time: Friday, January 27, 2017 12:20 - CONCLUSION: Abnormal chest as described above. Darrin Munoz MD FACR Objective Remarks GENERAL: This is a well-nourished, well-developed patient, in no apparent distress. SKIN: ecchymoses on bilateral arms, small bruises on abdomen. Bilateral lower extremity venous stasis changes with darkening of his lower extremities. EYES: Right eye with large subconjunctival hemorrhage. Pupils are equal round and reactive to light CARDIOVASCULAR: Regular rate and rhythm without murmurs, gallops, or rubs. RESPIRATORY: Clear to auscultation. Breath sounds equal bilaterally. No wheezes , rales, or rhonchi. GASTROINTESTINAL: Abdomen soft, non-tender, nondistended. No hepato-splenomegaly , or palpable masses. No guarding. MUSCULOSKELETAL: Bilateral lower extremities with trace edema. Bilateral lower extremities with darkening/discoloration consistent with peripheral vascular disease (Chhaya Santoro MD R1) A/P Assessment and Plan 71 yr old M with significant alcohol history admitted for thrombocytopenia Discharge Planning Plt count improving, discharge home with steroids and PPI, follow-up with oncology in 1 week (Chhaya Santoro MD R1) Attending Attestation Pt. examined and case discussed with resident physicians I have read the above note and agree with the assessment/plan as discussed with me I was involved in all medical decision making for this patient Ady Bell MD (Ady Bell MD) Problem List: (1) Thrombocytopenia Status: Acute Plan: Plt count today is 68,000. Determined stable by Hem/Onc team. Will be discharge with Prednisone 30 mg BID for 7 days and Protonix 40mg daily. Follow up with Oncology in 1 week and they will taper dose. Plt count <6000 upon admission. Pt reports a hx of bruising easily for the past 4 months. No active bleeding. Spoke with Dr. Salcido on the phone, most likely ITP s/p Solumedrol 80 q12 and IVIG- Privigen 1,000 mg/kg for 2 consecutive days Hem Onc consulted, appreciated recs Liver enzymes within normal limits INR < 1.0 UA negative Peripheral smear revealed decreased plt number, otherwise normal HIV negative Hep panel negative haptoglobin wnl LDH wnl Doppler US b/l negative for DVTs (2) Abdominal pain Status: Resolved Plan: Pt complains of dull, diffuse epigastric pain that has resolved. WBC 15.2, most likely due to patient taking steroids for ITP CT abdomen- no acute process Liver enzymes within normal limits (3) Constipation Status: Resolved Plan: Pt reports being constipated for the last couple of days. bowel regimen with colace (4) Chronic alcoholism Status: Acute Plan: [facility] protocol Folic Acid Multivitamin (5) Nutrition, metabolism, and development symptoms Status: Acute Plan: Fluids: none Diet: regular diet Nursing orders: vitals q4h, I & Os (Chhaya Santoro MD R1) Chhaya Santoro MD R1 Jan 29, 2017 10:53 Ady Bell MD Jan 29, 2017 14:17
[2017-01-29] MEDS ORDERED: PRED10 PO (10:57)
[2017-01-29] MEDS ORDERED: PANT40TA3 PO (10:57)
--- NOTE | 2017-01-29 10:57 | HHI.DCPOC ---
Discharge Care Plan Diagnosis: (1) Thrombocytopenia (2) Chronic alcoholism Goals to Promote Your Health * To prevent worsening of your condition and complications * To maintain your health at the optimal level Directions to Meet Your Goals Take your medications as prescribed Follow your dietary instruction Follow activity as directed Keep your appointments as scheduled Take your immunizations and boosters as scheduled If your symptoms worsen call your PCP, if no PCP go to Urgent Care Center or Emergency Room Smoking is Dangerous to Your Health. Avoid second hand smoke Call the 24-hour hour crisis hotline for domestic abuse at Chhaya Santoro MD R1 Jan 29, 2017 10:57
--- NOTE | 2017-01-29 10:57 | HHI.DS ---
Discharge Summary Admission Date Jan 27, 2017 at 10:38 Discharge Date: Jan 29, 2017 Admitting Diagnosis thrombocytopenia, chronic alcoholism (1) Thrombocytopenia Diagnosis: Principal Plan: Plt count <6000 upon admission. Pt reports a hx of bruising easily for the past 4 months. No active bleeding. Spoke with Dr. 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 -Solumedrol 80 q12 -IVIG- Privigen 1,000 mg/kg for 2 consecutive days, will receive 2 dose today -Plt count improving, 12,000 today -Once platelets greater than 30,000 he can be discharged on tapering dose steroids. Hem Onc consulted, appreciated recs Liver enzymes within normal limits INR < 1.0 UA negative Peripheral smear revealed decreased plt number, otherwise normal HIV negative Hep panel negative haptoglobin wnl LDH wnl Doppler US b/l negative for DVTs (2) Abdominal pain Diagnosis: Secondary Plan: Pt complains of dull, diffuse epigastric pain that has resolved. WBC improving, 10.[address] abdomen- no acute process Liver enzymes within normal limits (3) Constipation Diagnosis: Secondary Plan: Pt reports being constipated for the last couple of days. bowel regimen with colace (4) Chronic alcoholism Diagnosis: Secondary Plan: [facility] protocol Folic Acid Multivitamin (5) Nutrition, metabolism, and development symptoms Diagnosis: Secondary Plan: Fluids: none Diet: regular diet Nursing orders: vitals q4h, I & Os Consultants Hematology/oncology Procedures None Brief History 71-year-old male presenting to the emergency department with vague abdominal pain and found to have platelets of 6. He is complaining of abdominal pain that he says started 2 days ago. Describes this as a constant ache that is dull in nature and is in the epigastric region. This is associated with 2-3 episodes of nonbloody emesis yesterday. He also endorses constipation associated with this. He denies fevers or chills, denies chest pain or palpitations, denies shortness of breath. CT scan in the emergency department shows a hiatal hernia, otherwise no findings as to what could be causing this pain. During his workup in the emergency department, a CBC was read and he was found to have platelets of 6. Further evaluation shows that he has had easy bruising over the last 3-4 months. He denies any recent bleeding, denies bleeding from the gums, denies melena/hematochezia, denies nosebleeds. He did notice right is subconjunctival hemorrhage 3 days ago that occurred spontaneously. The only medication that he takes is travoprost drops for glaucoma. He does endorse a heavy alcohol history with 3-4 large whiskey drinks per night. He does endorse bilateral lower extremity edema, right greater than left over the last 2 months as well. CBC/BMP: 01/29/17 0814 01/29/17 0814 Significant Findings Laboratory Tests Test 01/27/17 01/27/17 01/27/17 01/28/17 08:30 09:45 18:34 06:41 White Blood Count 11.8 TH/MM3 (4.0-11.0) Platelet Count 6 TH/MM3 12 TH/MM3 (150-450) (150-450) Neutrophils (%) (Auto) 83.6 % 92.5 % (16.0-70.0) (16.0-70.0) Neutrophils # (Auto) 9.9 TH/MM3 9.4 TH/MM3 (1.8-7.7) (1.8-7.7) Platelet Estimate RARE (NORMAL) RARE (NORMAL) Sodium Level 135 MEQ/L (136-145) Estimat Glomerular Filtration 72 ML/MIN (>89) Rate Random Glucose 108 MG/DL (74-106) Aspartate Amino Transf 13 U/L (15-37) (AST/SGOT) Urine Ketones 10 mg/dL (NEG) Urine Occult Blood TRACE (NEG) Urine Mucus FEW /lpf (OCC) D-Dimer Quantitative (PE/DVT) 0.76 MG/L FEU (0.00-0.50) Red Blood Count 4.30 MIL/MM3 (4.50-5.90) Lymphocytes (%) (Auto) 6.0 % (9.0-44.0) Lymphocytes # (Auto) 0.6 TH/MM3 (1.0-4.8) Test 01/28/17 01/29/17 11:00 08:14 Estimat Glomerular Filtration 84 ML/MIN (>89) 74 ML/MIN (>89) Rate Random Glucose 118 MG/DL (74-106) Calcium Level 8.3 MG/DL 7.9 MG/DL (8.5-10.1) (8.5-10.1) White Blood Count 15.2 TH/MM3 (4.0-11.0) Red Blood Count 3.75 MIL/MM3 (4.50-5.90) Hemoglobin 12.0 GM/DL (13.0-17.0) Hematocrit 35.5 % (39.0-51.0) Platelet Count 68 TH/MM3 (150-450) Neutrophils (%) (Auto) 90.2 % (16.0-70.0) Lymphocytes (%) (Auto) 5.0 % (9.0-44.0) Neutrophils # (Auto) 13.7 TH/MM3 (1.8-7.7) Lymphocytes # (Auto) 0.8 TH/MM3 (1.0-4.8) Platelet Estimate LOW (NORMAL) Chloride Level 111 MEQ/L (98-107) Carbon Dioxide Level 18.9 MEQ/L (21.0-32.0) Blood Urea Nitrogen 21 MG/DL (7-18) PE at Discharge GENERAL: This is a well-nourished, well-developed patient, in no apparent distress. SKIN: ecchymoses on bilateral arms, small bruises on abdomen. Bilateral lower extremity venous stasis changes with darkening of his lower extremities. EYES: Right eye with large subconjunctival hemorrhage. Pupils are equal round and reactive to light CARDIOVASCULAR: Regular rate and rhythm without murmurs, gallops, or rubs. RESPIRATORY: Clear to auscultation. Breath sounds equal bilaterally. No wheezes , rales, or rhonchi. GASTROINTESTINAL: Abdomen soft, non-tender, nondistended. No hepato-splenomegaly , or palpable masses. No guarding. MUSCULOSKELETAL: Bilateral lower extremities with trace edema. Bilateral lower extremities with darkening/discoloration consistent with peripheral vascular disease Hospital Course Pt admitted on 01/27/17 for abdominal pain and Immune thrombocytopenia pupura. Plt count < [address] was negative for acute process. Hematology/Oncology consulted. Patient received Solumedrol and IVIG x2. Platelet count trended up to 12,000 on 01/28 and 68,000 01/29. Patient's abdominal pain resolved during his stay. Hematology/oncology determined that patient was stable for discharge on 7day course of Prednisone and Protonix. Patient recommended to follow up with hematology/oncology in 1 week for steroid tapering. Also recommended follow up with PCP in 1 week. Pt Condition on Discharge: Stable Discharge Disposition: Discharge Home Discharge Instructions DIET: Follow Instructions for: As Tolerated, No Restrictions Speech Therapy-Diet Recommends: Regular Activities you can perform: Regular-No Restrictions Follow up Referrals: Oncology - 1 Week with Yandel Salcido MD PCP Follow-up - 1 Week New Medications: Pantoprazole (Pantoprazole) 40 Mg Tab 40 MG PO DAILY GI protection #30 TAB Prednisone (Prednisone) 10 Mg Tab 30 MG PO BID #14 TAB Continued Medications: Travoprost Opth Drops (Travatan Z Opth Drops) 0.004 % Soln 1 DROP EACH EYE HS Glaucoma #1 Ref 0 BOTTLE Chhaya Santoro MD R1 Jan 29, 2017 10:57
[2017-01-29] MEDS ORDERED: predniSONE 10 MG TAB PO SCH (21:00)
== END 2017-01-29 13:00 | disposition home or self-care (01) | DRG 813 ==
LOC: NEPE 07:33 → NEDA 10:38 → OBSVTOIN 10:38 → INTOOBSV 10:38 → NEPFCDU 13:08 → INTOOBSV 18:28 → OBSVTOIN 18:28 → HOCA 23:42
PROVIDERS: ADMIT Family Medicine; ATTEND Family Medicine
DX: D69.3 Immune thrombocytopenic purpura (principal); E78.5 Hyperlipidemia, unspecified; F10.20 Alcohol dependence, uncomplicated; H11.31 Conjunctival hemorrhage, right eye; K44.9 Diaphragmatic hernia without obstruction or gangrene; R00.0 Tachycardia, unspecified; H40.9 Unspecified glaucoma; K59.00 Constipation, unspecified; Z87.891 Personal history of nicotine dependence; Z85.828 Personal history of other malignant neoplasm of skin; Z88.1 Allergy status to other antibiotic agents
CPT/HCPCS: 71020; 74176; 80048; 80053; 80074; 81001; 82607; 82746; 83010; 83615; 83690; 85025; 85060; 85379; 85610; 86703; 93970; 96361; 96374; 96375; C9113; J1459; J2270; J2405; J2920; J7030; J7040; J7060

== ENCOUNTER 2017-03-03 12:54 | Observation (INO) | payer MEDICARE ==
[~2017-03-03] VITALS: Ht 177.8 cm; Wt 83.4 kg
[~2017-03-03 12:54] MED LIST: BUPIVACAINE/EPINEPHRINE 0.25% PF 30 ML VIAL INFIL ONE; LACTATED RINGER'S 1000 ML INJ 1,000 ML IV ONE; LIPI20TA PO; ONDANSETRON HCL 4 MG/2 ML VIAL IV PUSH ONE; PANT40TA3 PO; PRED10 PO; PROPOFOL 200 MG/20 ML AMP IV ONE; TRAV0.00 EACH EYE
[2017-03-03] MEDS ORDERED: ceFAZolin 2 GM PREMIX 50 ML ONE (13:49)
[2017-03-03] MEDS ORDERED: LACTATED RINGER'S 1000 ML IV PRN (14:00)
[2017-03-03] MEDS ORDERED: POVIDONE IODINE 5% (ANTISEPSIS KIT) 4 APPLICATIONS EACH NARE PRN (14:00)
[2017-03-03] MEDS ORDERED: CHLORHEXIDINE GLUCONATE 2 % 1 PACK (2 CLOTHS) TOPICAL PRN (14:00)
[2017-03-03] MEDS ORDERED: INSULIN HUMAN REGULAR 1,000 UNITS/10 ML VIAL SQ PRN (14:00)
[2017-03-03] MEDS ORDERED: METOPROLOL TARTRATE 25 MG TAB PO PRN (14:00)
[2017-03-03] MEDS ORDERED: ceFAZolin 2 GM PREMIX 50 ML IV SCH (14:00)
[2017-03-03] MEDS ORDERED: SODIUM CHLORID 0.9% 500 ML IV PRN (14:00)
[2017-03-03 14:18] LABS: AUTOMATED NEUTROPHIL # 6.7 TH/MM3 (1.8-7.7); BASOPHIL % 0.2 % (0.0-2.0); EOSINOPHIL # 0.2 TH/MM3 (0-0.4); EOSINOPHIL % 1.9 % (0.0-4.0); HEMATOCRIT 40.6 % (39.0-51.0); LYMPH % 13.8 % (9.0-44.0); LYMPHOCYTE # 1.2 TH/MM3 (1.0-4.8); MEAN CELL VOLUME 94.2 FL (80.0-100.0); MEAN CORPUSCULAR HEMOGLOBIN 32.6 PG (27.0-34.0); MEAN CORPUSCULAR HGB CONC 34.6 % (32.0-36.0); MONO % 5.1 % (0.0-8.0); PLATELET COUNT 192 TH/MM3 (150-450); RED BLOOD COUNT 4.31 MIL/MM3 (4.50-5.90); RED CELL DISTRIBUTION WIDTH 15.1 % (11.6-17.2); WHITE BLOOD COUNT 8.5 TH/MM3 (4.0-11.0)
[2017-03-03 14:23] LABS: HEMO FLAGS AUTO DIFF
[2017-03-03] MEDS ORDERED: ACETAMINOPHEN 1000 MG/100 ML 100 ML IV ONE (14:55)
[2017-03-03] MEDS ORDERED: SUGAMMADEX SODIUM 200 MG/2 ML VIAL IV PUSH ONE ×2 (14:56)
[2017-03-03 15:28] LABS: BANDS 1 % (0-6); EOSINOPHILS 1 % (0-4); METAMYELOCYTES 4 % (0-1); NEUTROPHIL # MANUAL DIFF 7.8 TH/MM3 (1.8-7.7); POLYS (SEG NEUTROPHILS) 87 % (16-70); SCAN/DIFF FINAL DIFF MANUAL; WBC DIFF SAMPLE 100
[2017-03-03] MEDS ORDERED: DO NOT ADM ANY ANTICOAGULANT DRUGS PRN (17:02)
[2017-03-03] MEDS ORDERED: MORPHINE SULFATE 4 MG/ML INJ IV PUSH PRN (17:15)
[2017-03-03] MEDS ORDERED: NALOXONE HCL 0.4 MG/ML AMP IV PRN (17:15)
[2017-03-03] MEDS ORDERED: Post-op Orders (for Pharmacy) MISC XX ONE (17:15)
[2017-03-03] MEDS ORDERED: ACETAMINOPHEN/HYDROcodone 325 MG/5 MG TAB PO PRN (17:15)
[2017-03-03] MEDS ORDERED: diphenhydrAMINE HCL 50 MG/ML VIAL IV PRN (17:15)
[2017-03-03] MEDS ORDERED: ONDANSETRON HCL 4 MG/2 ML VIAL IV PRN (17:15)
[2017-03-03] MEDS ORDERED: MORPHINE SULFATE 8 MG/ML INJ IV PUSH PRN (17:15)
[2017-03-03] MEDS ORDERED: SODIUM CHLORIDE 0.9% FLUSH 5 ML FLUSH IVF PRN (17:15)
[2017-03-03] MEDS: LACTATED RINGER'S 1000 ML INJ 1,000 ML IV SCH (17:51)
[2017-03-03] MEDS ORDERED: *ENALAPRILAT 1.25 MG/ML VIAL PERIprocedural Use ONLY ONE (18:16)
[2017-03-03 20:50] VITALS: BP 144/77; PULSE 56; RESP 18; TEMP 96.7; O2SAT 95
[2017-03-03] MEDS: SODIUM CHLORIDE 0.9% FLUSH 5 ML FLUSH IVF SCH (21:00)
[2017-03-03] MEDS: ACETAMINOPHEN/HYDROcodone 325 MG/5 MG TAB PO PRN (21:14)
[2017-03-03] MEDS ORDERED: PCA - TOTAL MG MORPHINE DELIVERED PER SHIFT SCH (22:00)
[2017-03-04 00:11] VITALS: BP 119/71; PULSE 56; RESP 18; TEMP 96.9; O2SAT 96
[2017-03-04] MEDS: ACETAMINOPHEN/HYDROcodone 325 MG/5 MG TAB PO PRN ×2 (02:29→10:44)
[2017-03-04] MEDS: LACTATED RINGER'S 1000 ML INJ 1,000 ML IV SCH (02:29)
[2017-03-04 04:11] VITALS: BP 145/69; PULSE 60; RESP 18; TEMP 97.3; O2SAT 95
[2017-03-04 06:26] LABS: BASOPHIL % 0.2 % (0.0-2.0); EOSINOPHIL % 0.1 % (0.0-4.0); HEMATOCRIT 36.8 % (39.0-51.0); HEMO FLAGS DIFF FINAL; LYMPH % 9.5 % (9.0-44.0); LYMPHOCYTE # 1.1 TH/MM3 (1.0-4.8); MEAN CELL VOLUME 94.3 FL (80.0-100.0); MEAN CORPUSCULAR HEMOGLOBIN 32.5 PG (27.0-34.0); MEAN CORPUSCULAR HGB CONC 34.5 % (32.0-36.0); MONO % 3.6 % (0.0-8.0); NEUT % 86.6 % (16.0-70.0); PLATELET COUNT 207 TH/MM3 (150-450); WHITE BLOOD COUNT 11.6 TH/MM3 (4.0-11.0)
[2017-03-04 08:00] VITALS: BP 141/72; PULSE 58; RESP 18; TEMP 98; O2SAT 94
[2017-03-04 08:48] VITALS: O2SAT 96
[2017-03-04] MEDS: SODIUM CHLORIDE 0.9% FLUSH 5 ML FLUSH IVF SCH (09:00)
--- NOTE | 2017-03-04 09:55 | MP ---
cc: LILLIAM KIM M.D. DATE OF SURGERY 03/03/2017 PREOPERATIVE DIAGNOSIS Idiopathic thrombocytic purpura (ITP) refractory to medical management. POSTOPERATIVE DIAGNOSIS Idiopathic thrombocytic purpura (ITP) refractory to medical management. PROCEDURE PERFORMED Laparoscopic splenectomy. SURGEON Lilliam Kim. LEASE OPERATOR Sumit Velarde ANESTHESIA General endotracheal. ESTIMATED BLOOD LOSS Approximately 300 cc. COMPLICATIONS None. INDICATIONS FOR PROCEDURE Mr. Melton is a pleasant 71-year-old gentleman who is a patient of Dr. Yandel Salcido who has ITP. He has failed medical management. Dr. Salcido referred him for consideration of elective splenectomy. Risks and benefits of open and laparoscopic splenectomy was discussed with him and he was agreeable. Dr. Salcido gave him his vaccines and gave him IVIG in order to get his platelet count up for the surgical procedure. DETAILS The patient was identified, brought to the operating room, placed supine on the operating table. After adequate general endotracheal anesthesia was achieved, the abdomen was prepped and draped in standard surgical fashion. The supraumbilical space was anesthetized with 0.25% Marcaine. The supraumbilical incision was made. Dissection was carried down through the subcutaneous tissues to the midline fascia. Midline fascia was then incised sharply. A finger was then placed in the peritoneal cavity without difficulty. Blunt balloon trocar was inserted and the abdomen was insufflated to 15 mmHg using CO2 gas. Next, two 5 mm trocars were placed in the midline and left upper quadrant under direct vision after anesthetizing the skin and subcutaneous tissue with 0.2% Marcaine. A 10-mm trocar was then placed in the right in the left middle quadrant, again under direct vision after anesthetizing the skin and subcutaneous tissue with 0.25% Marcaine. Attention was directed to the right upper quadrant where the spleen was identified. The patient was noted have a small splenule in the omentum and this was taken down and placed over by the falciform ligament to be retrieved later. Attention was first directed to the superior pole the spleen with the short gastric vessels were identified and taken down with the harmonic scalpel all the way to the level of the superior pole of the spleen. Once we did this, attention was directed to the inferior pole of the spleen. The inferior pole attachments were then taken down with the harmonic scalpel. Once we did this, the Renée-Flex retractor was used to encircle the spleen and elevated it up in the air. Once we did this, we had clear visualization of the hilum. A Ethicon vascular stapler was then placed across the hilum. When we attempted to fire stapler, the motor quit working. We were unable to fire it. We therefore unclamped it and removed it and then opened a new stapler. Once we opened the new stapler, we placed it across the hilum and fired it successfully without any complication. An EndoCatch bag was then placed into the abdominal cavity and the spleen and the splenule that had been dissected earlier placed into the bag. The spleen was then morcellated and brought out through the supraumbilical port site. No splenic parts were spilled and gloves were changed in order not to drop any splenic pieces. The spleen was sent to pathology for analysis. Next, the abdominal cavity was visualized. A small amount of blood was noted in the left upper quadrant and this was suctioned out. We then irrigated out the left upper quadrant and no additional bleeding was noted. The abdominal cavity was then irrigated out a second time and the effluent was noted to be clear once suctioned back into the suction land leveler. The hilar vessels of the hilum was inspected and there was no bleeding noted. The greater curve of stomach was also inspected. No bleeding was noted there. At this point we felt comfortable that there was no postsurgical bleeding. At this point all ports were removed under direct vision. The 10-mm port in the left lower quadrant was closed with a Nasir-Melody suture passing device. The midline fascia was closed with 0 Vicryl in a [id number] fashion. The skin was closed with 4-0 Vicryl. The patient tolerated the procedure well, was awakened, brought to Recovery in stable condition. MD MEMO Andrew/SUN /5:07 PM /9:28 AM
[2017-03-04 12:00] VITALS: BP 118/65; PULSE 76; RESP 18; TEMP 98.2; O2SAT 94
--- NOTE | 2017-03-04 12:57 | EKG ---
Date Performed: 03/03/2017 Time Performed: 13:24:09 PTAGE: 71 years EKG: Sinus rhythm WITH SHORT OK INTERVAL INDETERMINATE AXIS MODERATE ST DEPRESSION ABNORMAL ECG NO PREVIOUS TRACING DOCTOR: Andrew Ramirez Interpretating Date/Time 03/04/2017 12:50:37
== END 2017-03-04 15:14 | disposition home or self-care (01) ==
LOC: HSDC 12:54 → HSDI 17:07 → N06B 20:31
PROVIDERS: ADMIT Surgery Trauma Surgery; ATTEND Surgery Trauma Surgery
DX: D69.3 Immune thrombocytopenic purpura (principal); Q89.09 Congenital malformations of spleen; R94.31 Abnormal electrocardiogram [ECG] [EKG]
CPT/HCPCS: 00790; 38120; 85007; 85025; 85027; 86850; 86900; 86901; 88305; 93005; 94150; G0378; J0131; J0690; J2405; J3010; J7120